=== PATIENT | male | born 1940 ===

== ENCOUNTER 2019-05-03 10:08 | Observation (INO) ==
[2019-05-03 10:48] LABS: Basophils # 0.1 10*3/uL (0.0-0.2); Basophils % 0.8 % (0.0-0.8); Eosinophils # 0.3 10*3/uL (0.0-0.87); Eosinophils % 3.2 % (0.00-10.9); Hematocrit 45.9 VOL% (42.0-52.0); Hemoglobin 15.2 GM/DL (14.0-18.0); Immature Granulocytes % 0.2 %; Immature Granulocytes Absolute 0.02 #; Lymphocytes # 1.9 10*3/uL (1.4-4.0); Lymphocytes % 22.3 % (21.2-54.2); Mean Corpuscular HGB Conc 33.1 GM/DL (32-36); Mean Corpuscular Volume 95.4 FL (87-102); Mean Platelet Volume 11.2 FL (9.6-12.0); Neutrophils % 64.5 % (38.7-73.9); Platelet Count 204 T/CUMM (130-400); Red Blood Count 4.81 MC/CUMM (3.8-5.5); Red Cell Distribution Width 12.6 % (9.3-17.3); White Blood Count 8.5 T/CUMM (4-12)
[2019-05-03 10:57] LABS: PT Patient Result 11.2 SECS (9.6-12.2)
[2019-05-03 11:09] LABS: Alanine Aminotransferase 41 U/L (16-61); Albumin 3.4 G/DL (3.4-5.0); Alkaline Phosphatase 144 U/L (45-117); Aspartate Amino Transferase 40 U/L (0-37); Blood Urea Nitrogen 14 MG/DL (7-18); Calcium 9.3 MG/DL (8.5-10.1); Estimated Glom Filtration Rate 86 ML/MIN; Glucose 243 MG/DL (74-106); Osmolality,Calculated 278.1 MOS/KG (273-304); Total Protein 8.3 G/DL (6.4-8.3); Troponin I < 0.015 NG/ML (0.00-0.045)
[2019-05-03] MEDS: HEPARIN DRIP 25,000 UNITS/500 ML PREMIX IV SCH (11:39)
[2019-05-03] MEDS ORDERED: DEXTROSE 50% 25 GM/50 ML VIAL IV PRN (13:46)
[2019-05-03] MEDS ORDERED: GLUCAGON 1 MG VIAL IM PRN ×2 (13:46→15:18)
[2019-05-03] MEDS ORDERED: ACETAMINOPHEN 325 MG TABLET PO PRN (15:15)
[2019-05-03] MEDS ORDERED: traMADol 50 MG TABLET PO PRN (15:17)
[2019-05-03] MEDS ORDERED: DEXTROSE 10% 25 GM/250 ML BAG IV PRN (15:18)
[2019-05-03] MEDS: INSULIN LISPRO 100 UNIT/ML SUBCUT SCH ×2 (16:27→21:28)
[2019-05-04] MEDS: HEPARIN DRIP 25,000 UNITS/500 ML PREMIX IV SCH ×2 (00:58→14:53)
[2019-05-04 01:12] LABS: Osmolality,Calculated 276.8 MOS/KG (273-304); Risk Ratio 3.59; Thyroid Stimulating Hormone 1.44 uIU/ml (0.358-3.74); VLDL CHOLESTEROL 23.8 MG/DL
[2019-05-04 01:14] LABS: Basophils % 0.5 % (0.0-0.8); Eosinophils # 0.3 10*3/uL (0.0-0.87); Eosinophils % 4.2 % (0.00-10.9); Hematocrit 41.1 VOL% (42.0-52.0); Hemoglobin 13.7 GM/DL (14.0-18.0); Immature Granulocytes % 0.4 %; Immature Granulocytes Absolute 0.03 #; Lymphocytes % 25.3 % (21.2-54.2); Mean Corpuscular HGB Conc 33.3 GM/DL (32-36); Mean Corpuscular Volume 95.4 FL (87-102); Mean Platelet Volume 11.8 FL (9.6-12.0); Monocytes % 11.8 % (1.7-12.7); Neutrophils % 57.8 % (38.7-73.9); Platelet Count 192 T/CUMM (130-400); Red Blood Count 4.31 MC/CUMM (3.8-5.5); Red Cell Distribution Width 12.6 % (9.3-17.3); White Blood Count 7.9 T/CUMM (4-12)
[2019-05-04] MEDS: INSULIN LISPRO 100 UNIT/ML SUBCUT SCH ×4 (09:25→21:22)
[2019-05-04] MEDS: PANTOPRAZOLE 40 MG TABLET PO SCH (09:26)
[2019-05-04] MEDS: ASPIRIN EC 81 MG TABLET PO SCH (09:26)
[2019-05-04] MEDS: MELOXICAM 7.5 MG TABLET PO SCH (09:26)
[2019-05-04] MEDS: lisinopriL 10 MG TABLET PO SCH (09:26)
[2019-05-05] MEDS: HEPARIN DRIP 25,000 UNITS/500 ML PREMIX IV SCH ×2 (04:46→18:35)
[2019-05-05] MEDS: MELOXICAM 7.5 MG TABLET PO SCH (10:49)
[2019-05-05] MEDS: lisinopriL 10 MG TABLET PO SCH (10:49)
[2019-05-05] MEDS: INSULIN LISPRO 100 UNIT/ML SUBCUT SCH ×4 (10:49→21:31)
[2019-05-05] MEDS: ASPIRIN EC 81 MG TABLET PO SCH (10:50)
[2019-05-05] MEDS: PANTOPRAZOLE 40 MG TABLET PO SCH (10:50)
[2019-05-06 01:09] LABS: PT Patient Result 11.2 SECS (9.6-12.2)
[2019-05-06 01:11] LABS: Partial Thromboplastin Time 115.1 SECS (20.8-36.0)
[2019-05-06] MEDS: HEPARIN DRIP 25,000 UNITS/500 ML PREMIX IV SCH (01:12)
[2019-05-06 05:04] LABS: Basophils % 0.4 % (0.0-0.8); Eosinophils # 0.3 10*3/uL (0.0-0.87); Eosinophils % 4.9 % (0.00-10.9); Hematocrit 37.9 VOL% (42.0-52.0); Hemoglobin 12.6 GM/DL (14.0-18.0); Immature Granulocytes % 0.4 %; Immature Granulocytes Absolute 0.03 #; Lymphocytes # 2.2 10*3/uL (1.4-4.0); Lymphocytes % 30.8 % (21.2-54.2); Mean Corpuscular HGB Conc 33.2 GM/DL (32-36); Mean Corpuscular Volume 95.5 FL (87-102); Mean Platelet Volume 11.9 FL (9.6-12.0); Neutrophils % 52.5 % (38.7-73.9); Platelet Count 199 T/CUMM (130-400); Red Blood Count 3.97 MC/CUMM (3.8-5.5); Red Cell Distribution Width 12.8 % (9.3-17.3)
[2019-05-06 05:28] LABS: Calcium 8.7 MG/DL (8.5-10.1); Osmolality,Calculated 277.5 MOS/KG (273-304)
[2019-05-06] MEDS ORDERED: DIAZEPAM 5 MG TABLET PO ONE (10:00)
[2019-05-06 11:46] LABS: PT Patient Result 11.2 SECS (9.6-12.2)
[2019-05-06] MEDS: INSULIN LISPRO 100 UNIT/ML SUBCUT SCH ×2 (11:50→11:51)
[2019-05-06 11:55] LABS: Partial Thromboplastin Time 66.1 SECS (20.8-36.0)
[2019-05-06] MEDS: ASPIRIN EC 81 MG TABLET PO SCH (12:07)
[2019-05-06] MEDS: PANTOPRAZOLE 40 MG TABLET PO SCH (12:07)
[2019-05-06] MEDS: lisinopriL 10 MG TABLET PO SCH (12:07)
[2019-05-06] MEDS: MELOXICAM 7.5 MG TABLET PO SCH (12:07)
[2019-05-06 12:11] VITALS: BP 151/74
== END 2019-05-06 15:05 | disposition home or self-care (01) ==
LOC: N.ED 10:08 → N.EDINP 10:08 → SUATTDRO 12:52 → N.EDINP 14:31 → N.4E 14:37
PROVIDERS: ADMIT Internal Medicine; ATTEND Family Medicine